=== PATIENT | female | born 1970 | race Caucasian/White ===

== ENCOUNTER 2021-01-13 15:55 | Emergency (ER) | payer BC, OTHER ==
[2021-01-13] MEDS ORDERED: KETOROLAC 15 MG/ML 1 ML VIAL IVP STA (16:47)
[2021-01-13] MEDS ORDERED: SODIUM CHLORIDE 0.9% 1,000 ML IV ONE (16:47)
[2021-01-13] MEDS ORDERED: ACETAMINOPHEN TAB 500 MG TAB PO STA (16:47)
[2021-01-13] MEDS ORDERED: ONDANSETRON 4 MG/2 ML VIAL IVP STA (16:47)
[2021-01-13] MEDS ORDERED: ALBUTEROL HFA INHALER INHALATION STA (16:47)
[2021-01-13] MEDS ORDERED: SODIUM CHLORIDE 0.9% 50 ML IVPB ONE (18:45)
[2021-01-13] MEDS ORDERED: CASIRIVIMAB (REGN10933) (EUA) 600 MG, IMDEVIMAB (REGN10987) (EUA) 600 MG in SODIUM CHLO... IVPB ONE (19:00)
[2021-01-13 19:09] VITALS: RESP 20
--- NOTE | 2021-01-13 19:12 | ED ---
General Adult HPI - General Chief complaint: Chest Pain Stated complaint: COVID + SOB Time Seen by Provider: 01/13/21 16:07 Source: family, RN notes reviewed, old records reviewed Mode of arrival: ambulatory Limitations: no limitations - History of Present Illness Initial comments: Patient is a 50-year-old female with past medical history remarkable for thyroid disorder and thyroid cancer currently on Synthroid presents in the department concern for acute COVID-19 infection. Patient states her symptoms have been present since January 06. She is tested on January 09 and was found be positive for COVID-19. States her symptoms have been getting worse. She remarks that she is having a nonproductive cough, dyspnea, fatigue, joint pain. She endorse mild nausea. She states she is febrile. She is not been taking anything for pain or fever since yesterday. Concerned regarding her COVID-19 symptoms. She states she was not vaccinated. She denies any chest pain. She denies any current abdominal pain. She denies any headache. She states her primary joint pain is in her lower back at this time. She otherwise has no acute complaints. Patient presents over concern for her COVID-19 symptoms. - Related Data Home Medications Medication Instructions Recorded Confirmed Levothyroxine Sodium 300 mcg PO DAILY 01/13/21 01/13/21 Multivit with Calcium,Iron,Min 1 tab PO DAILY 01/13/21 01/13/21 [Women's Multivitamin] Previous Rx's Medication Instructions Recorded Acetaminophen Tab [Tylenol] 500 mg PO Q6H PRN 14 Days #48 01/13/21 tablet Albuterol Inhaler [Ventolin Hfa 1 puff INHALATION RT-QID #8 gm 01/13/21 Inhaler] Allergies Allergy/AdvReac Type Severity Reaction Status Date / Time No Known Allergies Allergy Verified 01/13/21 16:44 Review of Systems ROS Statement: Those systems with pertinent positive or pertinent negative responses have been documented in the HPI. Review of Systems: CONST: Endorses fever EYES: Denies blurry vision ENT: Denies nasal congestion C/V: Denies Chest pain RESP: Endorses shortness of breath GI: Denies abdominal pain : Denies dysuria SKIN: Denies rash. MSK: Endorses joint pain NEURO: Denies headache ROS Other: All systems not noted in ROS Statement are negative. Past Medical History Past Medical History: Cancer, Thyroid Disorder Additional Past Medical History / Comment(s): HX OF THYROID CANCER, STATES SHE HAS APNEA AT TIMES., STATES POSITVE RECTAL BLOOD X1. History of Any Multi-Drug Resistant Organisms: None Reported Past Surgical History: Tonsillectomy, Tubal Ligation Additional Past Surgical History / Comment(s): SURGERY FOR SOMETHING THAT RUP TURED WHEN SHE WAS A CHILD, NOVASURE (2009), THYROIDECTOMY (2005). REPAIR OF VOCAL CORD (CUT DURING THYROID SURGERY) Past Anesthesia/Blood Transfusion Reactions: No Reported Reaction, Postoperative Nausea & Vomiting (PONV) Additional Past Anesthesia/Blood Transfusion Reaction / Comment(s): VOMITED X1. Past Psychological History: No Psychological Hx Reported Smoking Status: Never smoker Past Alcohol Use History: None Reported Past Drug Use History: None Reported - Past Family History Father Family Medical History: Cancer, COPD Additional Family Medical History / Comment(s): LUNG CANCER, DIVERTICULITIS. PTS UNCLE HAD COLON CANCER. General Exam - General Exam Comments Initial Comments: General: Appears in no acute distress. HEAD: Normal with no signs of head trauma. EYES: PERRLA, EOMI, conjunctiva normal, no discharge. ENT: Hearing grossly intact, normal oropharynx. RESPIRATORY: Clear breath sounds bilaterally. No wheezes, rales, or rhonchi. Patient is not tachypnea. Patient is not hypoxic. Oxygen saturations get to the lowest of 93% to 94% on room air. She does not require infection at this time. C/V: Patient is mildly tachycardic with regular rhythm. S1 and S2 auscultated. No peripheral edema. Peripheral pulses are 2+ intact throughout. ABD: Abd is soft, nontender, nondistended EXT: Normal range of motion, no obvious deformity. Patient does have lower paraspinal muscle tenderness to palpation which is been present since her current symptoms started. SKIN: No rashes or lesions observed on exposed skin. NEURO: Alert and oriented 4. Limitations: no limitations Course Vital Signs 01/13/21 01/13/21 01/13/21 15:57 16:00 18:00 Temperature 102.8 F H Pulse Rate 102 H 100 Respiratory 23 20 18 Rate Blood Pressure 121/90 O2 Sat by Pulse 94 L 95 Oximetry 01/13/21 01/13/21 19:08 21:33 Temperature 99.2 F 99.8 F H Pulse Rate 93 94 Respiratory 20 20 Rate Blood Pressure 129/82 130/77 O2 Sat by Pulse 95 98 Oximetry Medical Decision Making - Medical Decision Making Based on the patient's presentation and physical exam, patient seems to be experiencing slightly worsening symptoms over COVID-19 infection. She is Afebrile however is not requiring supplement oxygenation at this time. I did discuss with her that we will symptomatically treat her at this time, with IV Toradol, Zofran, 1 L fluid bolus, as well as an albuterol inhaler. She'll see with Tylenol for her fever. She was in agreement this plan. I did discuss with her starting monoclonal antibodies for the patient and she consented was in agreement with this plan. I do not believe that she requires any imaging or laboratory studies at this time. She was in agreement this plan. Following monoclonal antibody administration, she'll be observed for a period of one hour to observe for any signs of ALLERGIC reaction. Patient was monitored while she was in the department over the course Of her stay. Oxygen saturations improved. Patient's fever improved. Tachycardia resolved. On reevaluation, patient is feeling improved after monoclonal antibody treatment. I do believe it is safer to be discharged home at this time. I will provide the patient with a prescription for albuterol, Tylenol. I instructed the patient to follow up with their PCP in the next 3 days. . I explained that the patient should return to the emergency department if they experience any worsening symptoms. Strict return precautions were discussed with the patient. The patient expressed understanding of these instructions. I answered all questions that the patient had. The patient was discharged home in fair condition with their prescriptions and follow up information. - EKG Data -: EKG Interpreted by Me EKG Comments: 12-lead Electrocardiogram Interpretation Note EKG was reviewed and interpreted by myself. 12-lead ECG performed at 1622 is interpreted by me as revealing sinus tach cardiac at a rate of 109 beats per minute. [place] is normal. [place] interval is 132 ms, QRS duration is 90 form of seconds, QTC is 444 ms.. There were no ST or T wave abnormalities to suggest myocardial ischemia or injury. R wave progression across the precordium was satisfactory. By my interpretation this EKG is non-diagnostic for acute ischemia. Disposition Clinical Impression: COVID-19, Musculoskeletal pain Disposition: HOME SELF-CARE Condition: Fair Instructions (If sedation given, give patient instructions): Coronavirus Disease 2019 (COVID-19) Prescriptions: Acetaminophen Tab [Tylenol] 500 mg PO Q6H PRN 14 Days #48 tablet PRN Reason: Pain Albuterol Inhaler [Ventolin Hfa Inhaler] 1 puff INHALATION RT-QID #8 gm Is patient prescribed a controlled substance at d/c from ED?: No Referrals: Radha Baldwin MD [Primary Care Provider] - 1-2 days
[2021-01-13 21:34] VITALS: BP 130/77; PULSE 94; TEMP 99.8
== END 2021-01-13 21:33 | disposition home or self-care (01) ==
LOC: EC 15:55
DX: U07.1 COVID-19 (principal); M79.10 Myalgia, unspecified site; E07.9 Disorder of thyroid, unspecified; Z85.850 Personal history of malignant neoplasm of thyroid; Z90.89 Acquired absence of other organs; Z98.51 Tubal ligation status
CPT/HCPCS: 99285; 96365; 96375 ×2; 96361; 94640; 93005; J2405; J1885

== ENCOUNTER 2021-01-16 09:47 | Inpatient (IN) | payer BC ==
--- NOTE | 2021-01-16 10:01 | ED ---
General Adult HPI - General Stated complaint: COVID+, SOB Time Seen by Provider: 01/16/21 09:47 Source: patient, RN notes reviewed, old records reviewed - History of Present Illness Initial comments: This is a 50-year-old female presents emergency Department complaining of having shortness of breath. Patient states she started having symptoms shortest breath and cough on January 07 she was diagnosed on Tuesday with COVID and was given were general an and sent home on steroids. Patient states since then her difficulty breathing is worse. Patient denies any chest pain but she does complain of body aches and diarrhea. Patient denies any decreased taste or smell. Patient denies any lightheadedness or dizziness. Patient denies any abdominal pain patient denies any nausea vomiting. - Related Data Home Medications Medication Instructions Recorded Confirmed Levothyroxine Sodium 300 mcg PO DAILY 01/13/21 01/16/21 Multivit with Calcium,Iron,Min 1 tab PO DAILY 01/13/21 01/16/21 [Women's Multivitamin] Previous Rx's Medication Instructions Recorded Acetaminophen Tab [Tylenol] 500 mg PO Q6H PRN 14 Days #48 01/13/21 tablet Albuterol Inhaler [Ventolin Hfa 1 puff INHALATION RT-QID #8 gm 01/13/21 Inhaler] Allergies Allergy/AdvReac Type Severity Reaction Status Date / Time No Known Allergies Allergy Verified 01/16/21 11:10 Review of Systems ROS Statement: Those systems with pertinent positive or pertinent negative responses have been documented in the HPI. ROS Other: All systems not noted in ROS Statement are negative. Past Medical History Past Medical History: Cancer, Thyroid Disorder Additional Past Medical History / Comment(s): HX OF THYROID CANCER, STATES SHE HAS APNEA AT TIMES., STATES POSITVE RECTAL BLOOD X1. History of Any Multi-Drug Resistant Organisms: None Reported Past Surgical History: Tonsillectomy, Tubal Ligation Additional Past Surgical History / Comment(s): SURGERY FOR SOMETHING THAT RUPTURED WHEN SHE WAS A CHILD, NOVASURE (2009), THYROIDECTOMY (2004). REPAIR OF VOCAL CORD (CUT DURING THYROID SURGERY) Past Anesthesia/Blood Transfusion Reactions: No Reported Reaction, Postoperative Nausea & Vomiting (PONV) Additional Past Anesthesia/Blood Transfusion Reaction / Comment(s): VOMITED X1. Past Psychological History: No Psychological Hx Reported Smoking Status: Never smoker Past Alcohol Use History: None Reported Past Drug Use History: None Reported - Past Family History Father Family Medical History: Cancer, COPD Additional Family Medical History / Comment(s): LUNG CANCER, DIVERTICULITIS. PTS UNCLE HAD COLON CANCER. General Exam - General Exam Comments Initial Comments: GENERAL: Patient is well-developed and well-nourished. Patient is nontoxic and well- hydrated and is in mild distress. ENT: Neck is soft and supple. No significant lymphadenopathy is noted. Oropharynx is clear. Moist mucous membranes. Neck has full range of motion without elicit ing any pain. EYES: The sclera were anicteric and conjunctiva were pink and moist. Extraocular m ovements were intact and pupils were equal round and reactive to light. Eyelids were unremarkable. PULMONARY: Patient has crackles bilateral bases CARDIOVASCULAR: There is a regular rate and rhythm without any murmurs gallops or rubs. ABDOMEN: Soft and nontender with normal bowel sounds. SKIN: Skin is clear with no lesions or rashes and otherwise unremarkable. NEUROLOGIC: Patient is alert and oriented x3. Cranial nerves II through XII are grossly intact. Motor and sensory are also intact. Normal speech, volume and content. Symmetrical smile. MUSCULOSKELETAL: Normal extremities with adequate strength and full range of motion. LYMPHATICS: No significant lymphadenopathy is noted PSYCHIATRIC: Normal psychiatric evaluation. Course Vital Signs 01/16/21 01/16/21 09:57 10:15 Temperature 98.9 F Pulse Rate 99 Respiratory 25 H Rate Blood Pressure 118/88 O2 Sat by Pulse 87 L 93 L Oximetry Medical Decision Making - Medical Decision Making EKG shows normal sinus rhythm at 99 bpm PA interval 226 QRS is 88 QT interval 342 QTC is 438. Patient's EKG shows no ST segment elevation or depression. X-ray shows bilateral infiltrates consistent COVID Pneumonia. Patient's had a positive COVID more distal in the week. - Lab Data Result diagrams: 01/16/21 10:13 01/16/21 10:13 Lab Results 01/16/21 01/16/21 01/16/21 Range/Units 10:13 10:13 10:13 WBC 8.9 (3.8-10.6) k/uL RBC 4.28 (3.80-5.40) m/uL Hgb 13.2 (11.4-16.0) gm/dL Hct 38.9 (34.0-46.0) % MCV 91.0 (80.0-100.0) fL MCH 30.9 (25.0-35.0) pg MCHC 34.0 (31.0-37.0) g/dL RDW 15.1 (11.5-15.5) % Plt Count 213 (150-450) k/uL MPV 7.7 Neutrophils % 82 % Lymphocytes % 12 % Monocytes % 3 % Eosinophils % 0 % Basophils % 0 % Neutrophils # 7.3 (1.3-7.7) k/uL Lymphocytes # 1.1 (1.0-4.8) k/uL Monocytes # 0.3 (0-1.0) k/uL Eosinophils # 0.0 (0-0.7) k/uL Basophils # 0.0 (0-0.2) k/uL Hypochromasia Slight Poikilocytosis Slight D-Dimer 0.90 H (<0.60) mg/L FEU Sodium 142 (137-145) mmol/L Potassium 4.3 (3.5-5.1) mmol/L Chloride 106 (98-107) mmol/L Carbon Dioxide 28 (22-30) mmol/L Anion Gap 8 mmol/L BUN 18 H (7-17) mg/dL Creatinine 0.95 (0.52-1.04) mg/dL Est GFR (CKD-EPI)AfAm 82 (>60 ml/min/1.73 sqM) Est GFR (CKD-EPI)NonAf 72 (>60 ml/min/1.73 sqM) Glucose 136 H (74-99) mg/dL Calcium 8.3 L (8.4-10.2) mg/dL Total Bilirubin 0.7 (0.2-1.3) mg/dL AST 62 H (14-36) U/L ALT 36 H (4-34) U/L Alkaline Phosphatase 84 (38-126) U/L Total Protein 6.9 (6.3-8.2) g/dL Albumin 3.8 (3.5-5.0) g/dL Disposition Clinical Impression: Pneumonia due to COVID-19 virus, Hypoxia Disposition: ADMITTED IP TO THIS HOSP Referrals: Radha Baldwin MD [Primary Care Provider] - 1-2 days Time of Disposition: 11:27
[2021-01-16 10:22] LABS: Basophils % (A) 0 %; Eosinophils % (A) 0 %; HCT 38.9 % (34.0-46.0); HGB 13.2 gm/dL (11.4-16.0); Hypochromasia Slight; Lymphocytes # (A) 1.1 k/uL (1.0-4.8); Lymphocytes % (A) 12 %; MCH 30.9 pg (25.0-35.0); Mean Platelet Volume 7.7; Monocytes # (A) 0.3 k/uL (0-1.0); Monocytes % (A) 3 %; Neutrophils # (A) 7.3 k/uL (1.3-7.7); Neutrophils % (A) 82 %; Platelet Count 213 k/uL (150-450); Poikilocytosis Slight; RBC 4.28 m/uL (3.80-5.40); RDW 15.1 % (11.5-15.5); WBC 8.9 k/uL (3.8-10.6)
--- NOTE | 2021-01-16 10:34 | XR ---
EXAMINATION TYPE: XR chest 1V portable DATE OF EXAM: 01/16/2021 COMPARISON: NONE HISTORY: Shortness of breath and cough TECHNIQUE: Single frontal view of the chest is obtained. FINDINGS: Bilateral airspace disease is present. There is no evident pneumothorax or pleural effusio n. Cardiac mediastinal silhouette is within normal limits. Bones are within normal limits. IMPRESSION: Correlate for bilateral pneumonia
[2021-01-16 10:41] LABS: Albumin 3.8 g/dL (3.5-5.0); Calcium 8.3 mg/dL (8.4-10.2); Potassium 4.3 mmol/L (3.5-5.1); Total Bilirubin 0.7 mg/dL (0.2-1.3); Total Protein 6.9 g/dL (6.3-8.2)
[2021-01-16] MEDS ORDERED: DEXAMETHASONE SOD PHOSPHATE 10 MG/ML 1 ML VIAL IV STA (11:07)
[2021-01-16] MEDS ORDERED: SODIUM CHLORIDE 0.9% 1,000 ML IV ONE (11:27)
--- NOTE | 2021-01-16 13:26 | P.CNPUL ---
History of Present Illness Consult date: 01/16/21 Requesting physician: Leonel Freed Reason for consult: dyspnea, hypoxemia, abnormal CXR/CT Chief complaint: Shortness of breath, cough, dizziness, diarrhea History of present illness: This is a 50-year-old female patient who follows with Dr. Baldwin as her primary care provider. She has a history of thyroidectomy with subsequent hypothyroidism, obesity. On 01/07/2021 she started having symptoms of shortness of breath, cough, dizziness, diarrhea. She tested positive for COVID-19 on 01/12/2021. She came to the emergency room on 831 and did receive monoclonal antibodies and discharged home. She represented here this morning with worsening shortness of breath cough and congestion. O2 saturation room air 87%. She is afebrile. Tachypneic. Blood pressure stable. Chest x-ray does reveal bilateral airspace disease consistent with COVID-19 pneumonia. White count 8.9. Hemoglobin 13.2. D-dimer 0.90. Lymphocytes 1.1. Sodium 142. Potassium 4.3. Creatinine 0.95. Glucose 136. AST 62. ALT 36. She did receive Decadron 10 mg IV 1. 0.9 normal saline at 75 ML's per hour. Review of Systems REVIEW OF SYSTEMS: CONSTITUTIONAL: Generalized weakness, fatigue, poor appetite. Denies any recent significant weight loss or weight gain. EYES: Denies change in vision. EARS, NOSE, MOUTH, THROAT: Denies headaches, denies sore throat. CARDIOVASCULAR: Denies chest pain, palpitations or syncopal episodes. RESPIRATORY: Positive for shortness of breath, cough, congestion no hemoptysis. GASTROINTESTINAL: Positive for poor appetite, diarrhea GENITOURINARY: Denies hematuria, denies infections. MUSKULOSKELETAL: Denies pain, denies swelling. INTEGUMENTARY: Denies rash, denies eczema. NEUROLOGICAL: Denies recent memory loss, no recent seizure activity. PSYCHIATRIC: Denies anxiety, denies depression. HEMATOLOGIC/LYMPHATIC: Denies anemia, denies enlarged lymph nodes. Past Medical History Past Medical History: Cancer, Thyroid Disorder Additional Past Medical History / Comment(s): HX OF THYROID CANCER, STATES SHE HAS APNEA AT TIMES., STATES POSITVE RECTAL BLOOD X1. History of Any Multi-Drug Resistant Organisms: None Reported Past Surgical History: Tonsillectomy, Tubal Ligation Additional Past Surgical History / Comment(s): SURGERY FOR SOMETHING THAT RUPTURED WHEN SHE WAS A CHILD, NOVASURE (2010), THYROIDECTOMY (2005). REPAIR OF VOCAL CORD (CUT DURING THYROID SURGERY) Past Anesthesia/Blood Transfusion Reactions: No Reported Reaction, Postoperative Nausea & Vomiting (PONV) Additional Past Anesthesia/Blood Transfusion Reaction / Comment(s): VOMITED X1. Past Psychological History: No Psychological Hx Reported Smoking Status: Never smoker Past Alcohol Use History: None Reported Past Drug Use History: None Reported - Past Family History Father Family Medical History: Cancer, COPD Additional Family Medical History / Comment(s): LUNG CANCER, DIVERTICULITIS. PTS UNCLE HAD COLON CANCER. Medications and Allergies Home Medications Medication Instructions Recorded Confirmed Type Acetaminophen Tab [Tylenol] 500 mg PO Q6H PRN 14 Days #48 01/13/21 01/16/21 Rx tablet Albuterol Inhaler [Ventolin Hfa 1 puff INHALATION RT-QID #8 gm 01/13/21 01/16/21 Rx Inhaler] Levothyroxine Sodium 300 mcg PO DAILY 01/13/21 01/16/21 History Multivit with Calcium,Iron,Min 1 tab PO DAILY 01/13/21 01/16/21 History [Women's Multivitamin] Allergies Allergy/AdvReac Type Severity Reaction Status Date / Time No Known Allergies Allergy Verified 01/16/21 11:10 Physical Exam Vitals: Vital Signs Temp Pulse Resp BP Pulse Ox 01/16/21 11:17 95 20 138/89 97 01/16/21 10:15 93 L 01/16/21 09:57 98.9 F 99 25 H 118/88 87 L Intake and Output 01/15/21 01/16/21 01/16/21 22:59 06:59 14:59 Other: Weight 110.223 kg GENERAL EXAM: Alert, 50-year-old female patient, on 2 L nasal cannula with O2 saturation 97%, fairly comfortable in no apparent distress. HEAD: Normocephalic. EYES: Normal reaction of pupils, equal size. NOSE: Clear with pink turbinates. THROAT: No erythema or exudates. NECK: No masses, no JVD. CHEST: No chest wall deformity. LUNGS: Equal air entry with crackles in the bilateral bases CVS: S1 and S2 normal with no audible murmur, regular rhythm. ABDOMEN: No hepatosplenomegaly, normal bowel sounds, no guarding or rigidity. SPINE: No scoliosis or deformity SKIN: No rashes CENTRAL NERVOUS SYSTEM: No focal deficits, tone is normal in all 4 extremities. EXTREMITIES: There is no peripheral edema. No clubbing, no cyanosis. Peripheral pulses are intact. Results - Laboratory Findings CBC and BMP: 01/16/21 10:13 01/16/21 10:13 PT/INR, D-dimer D-Dimer 0.90 mg/L FEU (<0.60) H 01/16/21 10:13 Abnormal lab findings: Abnormal Labs 01/16/21 01/16/21 10:13 10:13 D-Dimer 0.90 H BUN 18 H Glucose 136 H Calcium 8.3 L AST 62 H ALT 36 H - Diagnostic Findings Chest x-ray: image reviewed Assessment and Plan Assessment: 1 Acute hypoxemic respiratory failure secondary to acute COVID-19 pneumonia, outside the window for Remdesivir 2 Mild transaminitis secondary to above 3 Hypothyroidism secondary to thyroidectomy 4 Obesity Plan: The patient was seen and evaluated by Dr. Moreland We'll continue with Decadron 6 mg IV daily Add Lovenox 40 mg subcu daily Add vitamin C, vitamin D3, zinc Outside the window for Remdesivir Repeat chest x-ray, inflammatory markers in a.m. We will continue to follow and make further recommendations based on his clinical status I, the cosigning physician, performed a history & physical examination of the patient. Lungs sounds with crackles in the bilateral bases. Maintaining good O2 saturations in the 90s on 2 L/m per nasal cannula I discussed the assessment and plan of care with my nurse practitioner, Licha Costa. I attest to the above consultation as dictated by her. Time with Patient: Greater than 30
[2021-01-16] MEDS ORDERED: ALBUTEROL NEBULIZED 2.5 MG/3 ML INHALATION PRN (13:34)
[2021-01-16] MEDS: ENOXAPARIN 40 MG/0.4 ML SYRINGE SQ SCH (15:58)
[2021-01-16] MEDS: CHOLECALCIFEROL 25 MCG (1000 IU) TABLET PO SCH (15:59)
[2021-01-16] MEDS: ZINC SULFATE 220 MG CAP PO SCH (15:59)
[2021-01-16] MEDS: ASCORBIC ACID 500 MG TAB PO SCH (15:59)
[2021-01-16] MEDS ORDERED: LOPERAMIDE 2 MG CAP PO PRN (18:09)
--- NOTE | 2021-01-16 18:11 | P.HPIM ---
History of Present Illness H&P Date: 01/16/21 Chief Complaint: Short of breath History of presenting complaint: This is a 50-year-old patient, follows Dr. Alanna Baldwin. Has a history of thyroid cancer with thyroidectomy. On supplemental Synthroid. On January 07 patient started having respiratory symptoms in terms of coughing short of breath. Symptoms progress. 5 days ago on Tuesday patient tested positive for COVID 19. She went and saw family doctor. Was given steroids and sent home. Symptoms are worsened. Patient more short of breath. Headache. Fevers chills. Diarrhea. Decreased appetite dizziness and rundown. No loss of smell or taste currently. Pulse ox was 87% on room air Patient had elected not to take the vaccination for COVID 19 Review of systems: GEN.: Weak diet decrease appetite fever EYES: None HEENT: None NECK: None RESPIRATORY: As above CARDIOVASCULAR: None GASTROINTESTINAL: Diarrhea GENITOURINARY: None MUSCULOSKELETAL: Some muscle aches LYMPHATICS: None HEMATOLOGICAL: None PSYCHIATRY: None NEUROLOGICAL: None Past medical history to include: Thyroid cancer with thyroidectomy on supplemental Synthroid Social history: . Works of [employer]. No smoking or alcohol or recreational drugs. Family history: COPD, lung cancer, diverticulitis, colon cancer Physical examination: VITAL SIGNS: Fever at home, 99, 25, 118/88, 87% on room air, upon presentation GENERAL: BMI 43, laying in bed, tired. EYES: Pupils equal. Conjunctiva normal. HEENT: External appearance of nose and ears normal, oral cavity grossly normal. NECK: JVD not raised; masses not palpable. HEART: First and second heart sounds are normal; no edema. LUNGS: Respiratory rate increased; decreased breath sounds. ABDOMEN: Soft, nontender, liver spleen not palpable, no masses palpable. PSYCH: Alert and oriented x3; mood and affect normal. NEUROLOGICAL: Cranial nerves grossly intact; no facial asymmetry, power and sensation grossly intact. LYMPHATICS: No lymph nodes palpable in the axilla and neck INVESTIGATIONS, reviewed in the clinical context: White count 8.9 hemoglobin 13.2 platelets 213 D-dimer 0.9 Potassium 4.3 BUN 18 creatinine 0.95 Total bilirubin 0.7 AST 62 ALT 36 EKG tracing personally reviewed by me-normal sinus rhythm, rate 99 Chest x-ray film personally reviewed by me-bilateral infiltrates Assessment and plan: -Acute severe COVID 19 pneumonitis, and a nonvaccinated patient with symptoms starting about 9 days ago Patient started on IV Decadron. Zinc, vitamin C, vitamin D. Consultation made to pulmonary and ID. Patient will benefit from IV Remdesivir. Patient may benefit from therapeutic dose of Lovenox, would let pulmonary determine the same -Acute hypoxic respiratory failure from COVID-19 pneumonia On nasal cannula 2 L. Incentive spirometry -Morbid obesity, BMI 43 Weight loss measures. See dietitian -Hypothyroid in a patient with total thyroidectomy for thyroid cancer Resume Synthroid -Acute diarrhea from COVID-19 IV fluids. Symptomatic treatment * Started on IV Decadron. IV Remdesivir and IL-6 inhibitor as per pulmonary/ID. Supplemented sitting vitamin C vitamin D. Incentive spirometry. Supplement oxygen. Lovenox dosing as per pulmonary. Given the complexity and severity of patient's condition expect the patient to be in the hospital at least for 2 overnights Care was discussed with the patient. Questions answered. Past Medical History Past Medical History: Cancer, Thyroid Disorder Additional Past Medical History / Comment(s): HX OF THYROID CANCER, STATES SHE HAS APNEA AT TIMES. History of Any Multi-Drug Resistant Organisms: None Reported Past Surgical History: Tonsillectomy, Tubal Ligation Additional Past Surgical History / Comment(s): SURGERY FOR SOMETHING THAT RUPTUR ED WHEN SHE WAS A CHILD, NOVASURE (2009), THYROIDECTOMY (2004). REPAIR OF VOCAL CORD (CUT DURING THYROID SURGERY), scar tissue removal from abdomen Past Anesthesia/Blood Transfusion Reactions: Postoperative Nausea & Vomiting (PONV) Additional Past Anesthesia/Blood Transfusion Reaction / Comment(s): VOMITED X1. Smoking Status: Never smoker - Past Family History Father Family Medical History: Cancer, COPD Additional Family Medical History / Comment(s): LUNG CANCER, DIVERTICULITIS. PTS UNCLE HAD COLON CANCER. Medications and Allergies Home Medications Medication Instructions Recorded Confirmed Type Acetaminophen Tab [Tylenol] 500 mg PO Q6H PRN 14 Days #48 01/13/21 01/16/21 Rx tablet Albuterol Inhaler [Ventolin Hfa 1 puff INHALATION RT-QID #8 gm 01/13/21 01/16/21 Rx Inhaler] Levothyroxine Sodium 300 mcg PO DAILY 01/13/21 01/16/21 History Multivit with Calcium,Iron,Min 1 tab PO DAILY 01/13/21 01/16/21 History [Women's Multivitamin] Allergies Allergy/AdvReac Type Severity Reaction Status Date / Time No Known Allergies Allergy Verified 01/16/21 11:10 Physical Exam Vitals: Vital Signs Temp Pulse Pulse Resp BP BP Pulse Ox 01/16/21 16:30 98.7 F 82 18 109/73 94 L 01/16/21 14:55 98.6 F 88 20 107/51 95 01/16/21 13:15 98.4 F 85 20 112/80 95 01/16/21 11:17 95 20 138/89 97 01/16/21 10:15 93 L 01/16/21 09:57 98.9 F 99 25 H 118/88 87 L Intake and Output 01/16/21 01/16/21 01/16/21 06:59 14:59 22:59 Other: Weight 110.223 kg 110.223 kg Results CBC & Chem 7: 01/16/21 10:13 01/16/21 10:13 Labs: Abnormal Lab Results - Last 24 Hours (Table) 01/16/21 01/16/21 Range/Units 10:13 10:13 D-Dimer 0.90 H (<0.60) mg/L FEU BUN 18 H (7-17) mg/dL Glucose 136 H (74-99) mg/dL Calcium 8.3 L (8.4-10.2) mg/dL AST 62 H (14-36) U/L ALT 36 H (4-34) U/L Thrombosis Risk Factor Assmnt - Choose All That Apply Any of the Below Risk Factors Present?: Yes Each Factor Represents 1 point: Age 41-60 years Other Risk Factors: No Other congenital or acquired thrombophilia - If yes, enter type in comment: No Thrombosis Risk Factor Assessment Total Risk Factor Score: 1 Thrombosis Risk Factor Assessment Level: Low Risk
[2021-01-16] MEDS: ALBUTEROL HFA INHALER INHALATION PRN (20:35)
--- NOTE | 2021-01-16 22:22 | P.CONS ---
History of Present Illness - Reason for Consult Consult date: 01/16/21 COVID 19 pneumonia Requesting physician: Leonel Freed - Chief Complaint cough and shortness of breath x days - History of Present Illness History of present illness : Patient is 50-year-old female started getting sick on 01/07/2021 symptom has been mostly dry hacking cough weakness and diarrhea patient was evaluated on 01/13/2021 at [facility] ER the patient was diagnosed with a COVID-19 infection patient did receive monoclonal antibody infusion and was subsequent discharged home however the patient mentioned she did not have improvement in her symptoms, the patient primary care physician nurse did check on the patient today and after our telephone conversation advised the patient to go back to the ER patient be complaining of shortness of breath on minimal exertion she also have a cough which is moderate intensity not be repeated sputum patient did have some nausea but no vomiting and did have decreased oral intake and diarrhea with multiple loose stools no blood or mucus in the stool no abdominal pain patient was reevaluated by the ER physician on arrival to the ER the patient was afebrile patient was noted to be hypoxic with O2 sats of 87% on room air patient did have a normal white count with no lymphopenia D-dimer was 0.90 creatinine was 0.958 liver enzymes are mildly elevated inflammatory markers were not checked patient did have a chest x-ray correlate for bilateral pneumonia patient has been admitted to hospital patient was started on dexamethasone Lovenox zinc ascorbic acid infectious disease was consulted for further management Review of system: CONSTITUTIONAL: Positive for weakness along with the fever. EYES: No complaint. ENT: No complaint. RESPIRATORY: As per history of present illness CARDIOVASCULAR: No complaint. GENITOURINARY: No complaint. GASTROINTESTINAL: As per history of present illness. MUSCULOSKELETAL: No complaint. INTEGUMENTARY: No complaint. PSYCHOLOGIC: No complaint. ENDOCRINE: No complaint. NEUROLOGIC: No complaint. Past medical history : Reviewed, documented below Past surgical history : Reviewed, documented below Social history: Reviewed, documented below Medications: Reviewed, as documented below GENERAL DESCRIPTION: Middle-aged female lying in bed, no distress. No tachypnea or accessory muscle of respiration use. HEENT: Shows Pallor , no scleral icterus. Oral mucous membrane is dry. NECK: Trachea central, no thyromegaly. LUNGS: Unlabored breathing. Coarse breath sounds bilaterally. No wheeze or crackle. HEART: S1, S2, regular rate and rhythm. ABDOMEN: Soft, no tenderness , guarding or rigidity EXTREMITIES: No edema of feet. SKIN: No rash, no masses palpable. NEUROLOGICAL: The patient is awake, alert, oriented x3, mood and affect normal. LABS AND RADIOLOGY: Reviewed results see below Assessment : Patient presented to hospital with increasing shortness of breath cough which is moderate intensity in this patient who did have hypoxemia and evidence of multifocal pneumonia secondary to COVID-19 infection in this patient did not responded to the monoclonal antibody infusion, patient is currently out of the therapeutic window for remdesivir per her [facility] policy as the patient symptom has been going on for 9 days now treatment will be mostly supportive no evidence of any secondary bacterial pneumonia so no need for antibiotics Plan: 1-dexamethasone Lovenox and ascorbic acid 2-gentle IV fluid 3-check inflammatory markers 4-droplet isolation and respiratory support We will follow on clinical condition and cultures to further adjust medication if needed Thank you for this consultation we will follow the patient along with you Past Medical History Past Medical History: Cancer, Thyroid Disorder Additional Past Medical History / Comment(s): HX OF THYROID CANCER, STATES SHE HAS APNEA AT TIMES., STATES POSITVE RECTAL BLOOD X1. History of Any Multi-Drug Resistant Organisms: None Reported Past Surgical History: Tonsillectomy, Tubal Ligation Additional Past Surgical History / Comment(s): SURGERY FOR SOMETHING THAT RUPTURED WHEN SHE WAS A CHILD, NOVASURE (2009), THYROIDECTOMY (2005). REPAIR OF VOCAL CORD (CUT DURING THYROID SURGERY) Past Anesthesia/Blood Transfusion Reactions: No Reported Reaction, Postoperative Nausea & Vomiting (PONV) Additional Past Anesthesia/Blood Transfusion Reaction / Comm: VOMITED X1. Past Psychological History: No Psychological Hx Reported Smoking Status: Never smoker Past Alcohol Use History: None Reported Past Drug Use History: None Reported - Past Family History Father Family Medical History: Cancer, COPD Additional Family Medical History / Comment(s): LUNG CANCER, DIVERTICULITIS. PTS UNCLE HAD COLON CANCER. Medications and Allergies Home Medications Medication Instructions Recorded Confirmed Type Acetaminophen Tab [Tylenol] 500 mg PO Q6H PRN 14 Days #48 01/13/21 01/16/21 Rx tablet Albuterol Inhaler [Ventolin Hfa 1 puff INHALATION RT-QID #8 gm 01/13/21 01/16/21 Rx Inhaler] Levothyroxine Sodium 300 mcg PO DAILY 01/13/21 01/16/21 History Multivit with Calcium,Iron,Min 1 tab PO DAILY 01/13/21 01/16/21 History [Women's Multivitamin] Allergies Allergy/AdvReac Type Severity Reaction Status Date / Time No Known Allergies Allergy Verified 01/16/21 11:10 Physical Exam Vitals: Vital Signs Temp Pulse Resp BP Pulse Ox 01/16/21 14:55 98.6 F 88 20 107/51 95 01/16/21 13:15 98.4 F 85 20 112/80 95 01/16/21 11:17 95 20 138/89 97 01/16/21 10:15 93 L 01/16/21 09:57 98.9 F 99 25 H 118/88 87 L Intake and Output 01/16/21 01/16/21 01/16/21 06:59 14:59 22:59 Other: Weight 110.223 kg Results CBC & Chem 7: 01/16/21 10:13 01/16/21 10:13 Labs: Abnormal Lab Results - Last 24 Hours (Table) 01/16/21 01/16/21 Range/Units 10:13 10:13 D-Dimer 0.90 H (<0.60) mg/L FEU BUN 18 H (7-17) mg/dL Glucose 136 H (74-99) mg/dL Calcium 8.3 L (8.4-10.2) mg/dL AST 62 H (14-36) U/L ALT 36 H (4-34) U/L
[2021-01-17] MEDS: LEVOTHYROXINE 100 MCG TAB PO SCH (05:36)
--- NOTE | 2021-01-17 07:47 | XR ---
EXAMINATION TYPE: XR chest 1V portable DATE OF EXAM: 01/17/2021 COMPARISON: 01/16/2021 HISTORY: 50 years Female. STUDY INDICATION GIVEN: Covid pneumonia . TECHNIQUE: Portable upright chest radiograph FINDINGS AND IMPRESSION: Interval mild decrease in patchy bilateral right greater than left opacities which likely represent m ultifocal pneumonia and/or bibasilar subsegmental atelectatic changes. No pneumothorax, pleural effusion or cardiomegaly. Stable osseous structures.
[2021-01-17] MEDS: MULTIVITAMINS, THERA 1 EACH TAB PO SCH (09:06)
[2021-01-17] MEDS: CHOLECALCIFEROL 25 MCG (1000 IU) TABLET PO SCH (09:06)
[2021-01-17] MEDS: ENOXAPARIN 40 MG/0.4 ML SYRINGE SQ SCH (09:06)
[2021-01-17] MEDS: ZINC SULFATE 220 MG CAP PO SCH (09:06)
[2021-01-17] MEDS: DEXAMETHASONE SOD PHOSPHATE 10 MG/ML 1 ML VIAL IV SCH (09:06)
[2021-01-17] MEDS: ASCORBIC ACID 500 MG TAB PO SCH (09:06)
[2021-01-17] MEDS: ALBUTEROL HFA INHALER INHALATION PRN ×4 (09:28→21:11)
--- NOTE | 2021-01-17 13:28 | P.PN ---
Subjective Progress Note Date: 01/17/21 Principal diagnosis: COVID-19 pneumonia This is a 50-year-old female patient who follows with Dr. Baldwin as her primary care provider. She has a history of thyroidectomy with subsequent hypothyroidism, obesity. On 01/07/2021 she started having symptoms of shortness of breath, cough, dizziness, diarrhea. She tested positive for COVID-19 on 01/12/2021. She came to the emergency room on 831 and did receive monoclonal antibodies and discharged home. She represented here this morning with worsening shortness of breath cough and congestion. O2 saturation room air 87%. She is afebrile. Tachypneic. Blood pressure stable. Chest x-ray does reveal bilateral airspace disease consistent with COVID-19 pneumonia. White count 8.9. Hemoglobin 13.2. D-dimer 0.90. Lymphocytes 1.1. Sodium 142. Potassium 4.3. Creatinine 0.95. Glucose 136. AST 62. ALT 36. She did receive Decadron 10 mg IV 1. 0.9 normal saline at 75 ML's per hour. The patient is seen today 01/17/2001 in follow-up on the regular medical floor. She is currently resting fairly comfortably in bed. Awake and alert in no acute distress. Breathing a bit easier today compared to yesterday. She is ma intaining O2 saturations in the 90s on 2 L/m per nasal cannula. She's afebrile. Hemodynamically stable. D-dimer 0.98. She remains on Lovenox, Decadron, vitamin supplements. Objective - Vital Signs Vital signs: Vital Signs Temp 98.1 F 01/17/21 10:04 Pulse 82 01/17/21 10:04 Resp 18 01/17/21 10:04 BP 103/68 01/17/21 10:04 Pulse Ox 92 L 01/17/21 10:04 Intake & Output 01/16/21 01/17/21 01/17/21 18:59 06:59 18:59 Intake Total 1240 Balance 1240 Weight 110.223 kg Intake: Intake, IV Titration 600 Amount Sodium Chloride 0.9% 1, 600 000 ml @ 75 mls/hr IV . [id number] Rx#:[id number] Oral 640 Other: # Voids 1 1 # Bowel Movements 2 - Exam GENERAL EXAM: Alert, 50-year-old female patient, on 2 L nasal cannula with O2 saturation 92%, fairly comfortable in no apparent distress. HEAD: Normocephalic. EYES: Normal reaction of pupils, equal size. NOSE: Clear with pink turbinates. THROAT: No erythema or exudates. NECK: No masses, no JVD. CHEST: No chest wall deformity. LUNGS: Equal air entry with crackles in the bilateral bases CVS: S1 and S2 normal with no audible murmur, regular rhythm. ABDOMEN: No hepatosplenomegaly, normal bowel sounds, no guarding or rigidity. SPINE: No scoliosis or deformity SKIN: No rashes CENTRAL NERVOUS SYSTEM: No focal deficits, tone is normal in all 4 extremities. EXTREMITIES: There is no peripheral edema. No clubbing, no cyanosis. Peripheral pulses are intact. - Labs CBC & Chem 7: 01/16/21 10:13 01/16/21 10:13 Labs: Abnormal Lab Results - Last 24 Hours (Table) 01/17/21 Range/Units 05:49 D-Dimer 0.98 H (<0.60) mg/L FEU Assessment and Plan Assessment: 1 Acute hypoxemic respiratory failure secondary to acute COVID-19 pneumonia, outside the window for Remdesivir 2 Mild transaminitis secondary to above 3 Hypothyroidism secondary to thyroidectomy 4 Obesity Plan: The patient was seen and evaluated by Dr. Moreland Continue with Decadron, Lovenox, vitamin supplements Titrate the FiO2 as tolerated Repeat chest x-ray, inflammatory markers in a.m. We will continue to follow I, the cosigning physician, performed a history & physical examination of the patient. Lungs sounds with crackles in the bilateral bases. Maintaining good O2 saturations in the 90s on 2 L/m per nasal cannula I discussed the assessment and plan of care with my nurse practitioner, Licha Costa. I attest to the above note as dictated by her.
[2021-01-17 13:54] LABS: C Reactive Protein 13.3 mg/dL (0.0-0.8)
[2021-01-17 14:40] VITALS: BMI 43.0
--- NOTE | 2021-01-17 18:53 | P.PN ---
Subjective Progress Note Date: 01/17/21 Principal diagnosis: COVID-19 pneumonia 50-year-old female patient who follows with Dr. Baldwin as her primary care provider. She has a history of thyroidectomy with subsequent hypothyroidism, obesity. On 01/07/2021 she started having symptoms of shortness of breath, cough, dizziness, diarrhea. She tested positive for COVID-19 on 01/12/2021. She came to the emergency room on 831 and did receive monoclonal antibodies and discharged home. She represented here this morning with worsening shortness of breath cough and congestion. O2 saturation room air 87%. She is afebrile. Tachypneic. Blood pressure stable. Chest x-ray does reveal bilateral airspace disease consistent with COVID-19 pneumonia. White count 8.9. Hemoglobin 13.2. D-dimer 0.90. Lymphocytes 1.1. Sodium 142. Potassium 4.3. Creatinine 0.95. Glucose 136. AST 62. ALT 36. She did receive Decadron 10 mg IV 1. 0.9 normal saline at 75 ML's per hour. Objective - Vital Signs Vital signs: Vital Signs Temp 98.1 F 01/17/21 10:04 Pulse 82 01/17/21 10:04 Resp 18 01/17/21 10:04 BP 103/68 01/17/21 10:04 Pulse Ox 92 L 01/17/21 10:04 Intake & Output 01/16/21 01/17/21 01/17/21 18:59 06:59 18:59 Intake Total 1240 Balance 1240 Weight 110.223 kg Intake: Intake, IV Titration 600 Amount Sodium Chloride 0.9% 1, 600 000 ml @ 75 mls/hr IV . [id number] ONE Rx#:[id number] Oral 640 Other: # Voids 1 1 # Bowel Movements 2 - Exam GENERAL EXAM: Alert, 50-year-old female patient, on 2 L nasal cannula with O2 saturation 92%, fairly comfortable in no apparent distress. HEAD: Normocephalic. NECK: No masses, no JVD. CHEST: No chest wall deformity. LUNGS: Equal air entry with crackles in the bilateral bases CVS: S1 and S2 normal with no audible murmur, regular rhythm. ABDOMEN: No hepatosplenomegaly, normal bowel sounds, no guarding or rigidity. CENTRAL NERVOUS SYSTEM: No focal deficits, tone is normal in all 4 extremities. EXTREMITIES: There is no peripheral edema. No clubbing, no cyanosis. Peripheral pulses are intact. - Labs CBC & Chem 7: 01/16/21 10:13 01/16/21 10:13 Labs: Abnormal Lab Results - Last 24 Hours (Table) 01/17/21 Range/Units 05:49 D-Dimer 0.98 H (<0.60) mg/L FEU Assessment and Plan Assessment: 1. Acute hypoxemic respiratory failure --Continue with supplemental oxygen with plan is to continue to titrate FiO2 as tolerated 2. Acute over 19 pneumonia -- Patient was outside the window for Remdesivir - We will continue to monitor and trend inflammatory markers and chest x-ray periodically - Patient remains on Decadron, Lovenox and vitamin supplements 3. Mild transaminitis; possibly related to COVID-19 infection; we will monitor liver enzymes 4. Hypothyroidism; continue with home dose of levothyroxine 5. Obesity; counseling done DVT prophylaxis; SCDs/subcu Lovenox CODE STATUS; full code
--- NOTE | 2021-01-17 19:10 | PN ---
PROGRESS NOTE DATE OF SERVICE: 01/17/2021 REASON FOR FOLLOWUP: COVID-19 pneumonia. INTERVAL HISTORY: The patient is afebrile. The patient is breathing comfortably. The patient denies having any chest pain or shortness of breath. Cough has slightly decreased in intensity. No vomiting. No abdominal pain or diarrhea. PHYSICAL EXAMINATION: Blood pressure 130/82 with a pulse of 83, temperature 97.9. She is 94% on 2 L nasal cannula. General description is a middle-aged female up in the bed in no distress. Respiratory system: Unlabored breathing, decreased intensity of breath sounds. No wheeze. Heart S1, S2. Regular rate and rhythm. Abdomen soft, no tenderness. LABS: Chest x-ray showing interval mild decrease in the patchy bilateral infiltrate. ( ) is 0.98. LDH is 526. ( ) is 13. DIAGNOSTIC IMPRESSION AND PLAN: Patient with acute COVID-19 pneumonia and this patient has shown clinical improvement, to continue with Lovenox, dexamethasone, ascorbic acid and supportive care. Prognosis remains to be guarded. MMODL / IJN: [id number] /
[2021-01-18] MEDS: LEVOTHYROXINE 100 MCG TAB PO SCH (05:21)
[2021-01-18] MEDS: ALBUTEROL HFA INHALER INHALATION PRN ×3 (08:20→17:17)
[2021-01-18] MEDS: ASCORBIC ACID 500 MG TAB PO SCH (08:26)
[2021-01-18] MEDS: DEXAMETHASONE SOD PHOSPHATE 10 MG/ML 1 ML VIAL IV SCH (08:26)
[2021-01-18] MEDS: MULTIVITAMINS, THERA 1 EACH TAB PO SCH (08:26)
[2021-01-18] MEDS: ZINC SULFATE 220 MG CAP PO SCH (08:26)
[2021-01-18] MEDS: ENOXAPARIN 40 MG/0.4 ML SYRINGE SQ SCH (08:26)
[2021-01-18] MEDS: CHOLECALCIFEROL 25 MCG (1000 IU) TABLET PO SCH (08:26)
--- NOTE | 2021-01-18 12:28 | P.PN ---
Subjective Progress Note Date: 01/18/21 Principal diagnosis: COVID-19 pneumonia This is a 50-year-old female patient who follows with Dr. Baldwin as her primary care provider. She has a history of thyroidectomy with subsequent hypothyroidism, obesity. On 01/07/2021 she started having symptoms of shortness of breath, cough, dizziness, diarrhea. She tested positive for COVID-19 on 01/12/2021. She came to the emergency room on 831 and did receive monoclonal antibodies and discharged home. She represented here this morning with worsening shortness of breath cough and congestion. O2 saturation room air 87%. She is afebrile. Tachypneic. Blood pressure stable. Chest x-ray does reveal bilateral airspace disease consistent with COVID-19 pneumonia. White count 8.9. Hemoglobin 13.2. D-dimer 0.90. Lymphocytes 1.1. Sodium 142. Potassium 4.3. Creatinine 0.95. Glucose 136. AST 62. ALT 36. She did receive Decadron 10 mg IV 1. 0.9 normal saline at 75 ML's per hour. The patient is seen today 01/17/2001 in follow-up on the regular medical floor. She is currently resting fairly comfortably in bed. Awake and alert in no acute distress. Breathing a bit easier today compared to yesterday. She is ma intaining O2 saturations in the 90s on 2 L/m per nasal cannula. She's afebrile. Hemodynamically stable. D-dimer 0.98. She remains on Lovenox, Decadron, vitamin supplements. The patient is seen today 01/18/2021 in follow-up on the regular medical floor. Awake and alert in no acute distress. Feeling nearly back to her baseline. She is maintaining O2 saturations in the 90s on 2 L nasal cannula. She does desaturate to 86% on room air. Afebrile. Hemodynamically stable. She remains on Lovenox, Decadron, vitamin supplements. Objective - Vital Signs Vital signs: Vital Signs Temp 99.1 F 01/18/21 10:00 Pulse 74 01/18/21 10:00 Resp 18 01/18/21 10:00 BP 111/79 01/18/21 10:00 Pulse Ox 94 L 01/18/21 11:02 Intake & Output 01/17/21 01/18/21 01/18/21 18:59 06:59 18:59 Intake Total 480 Balance 480 Weight 110.223 kg Intake: Oral 480 Other: # Voids 4 1 # Bowel Movements 1 - Exam GENERAL EXAM: Alert, 50-year-old female patient, on 2 L nasal cannula with O2 saturation 94%, comfortable in no apparent distress. HEAD: Normocephalic. EYES: Normal reaction of pupils, equal size. NOSE: Clear with pink turbinates. THROAT: No erythema or exudates. NECK: No masses, no JVD. CHEST: No chest wall deformity. LUNGS: Equal air entry with crackles in the bilateral bases CVS: S1 and S2 normal with no audible murmur, regular rhythm. ABDOMEN: No hepatosplenomegaly, normal bowel sounds, no guarding or rigidity. SPINE: No scoliosis or deformity SKIN: No rashes CENTRAL NERVOUS SYSTEM: No focal deficits, tone is normal in all 4 extremities. EXTREMITIES: There is no peripheral edema. No clubbing, no cyanosis. Peripheral pulses are intact. - Labs CBC & Chem 7: 01/16/21 10:13 01/16/21 10:13 Labs: Abnormal Lab Results - Last 24 Hours (Table) 01/17/21 Range/Units 05:49 Lactate Dehydrogenase 556 H (120-246) U/L C-Reactive Protein 13.3 H (0.0-0.8) mg/dL Assessment and Plan Assessment: 1 Acute hypoxemic respiratory failure secondary to acute COVID-19 pneumonia, outside the window for Remdesivir 2 Mild transaminitis secondary to above 3 Hypothyroidism secondary to thyroidectomy 4 Obesity Plan: The patient was seen and evaluated by Dr. Moreland Cleared for discharge from the pulmonary standpoint Continue with Decadron for a total of 10 days Does require home oxygen Follow-up in our office in 3-4 weeks I, the cosigning physician, performed a history & physical examination of the patient. Lungs sounds with crackles in the bilateral bases. Maintaining good O2 saturations in the 90s on 2 L/m per nasal cannula. I discussed the assessment and plan of care with my nurse practitioner, Licha Costa. I attest to the above note as dictated by her.
[2021-01-18 15:09] VITALS: BP 103/67; PULSE 83; RESP 19; TEMP 98.3
--- NOTE | 2021-01-18 18:20 | P.DS ---
Providers Date of admission: 01/16/21 11:27 Expected date of discharge: 01/18/21 Attending physician: Leonel Freed Consults: 01/16/21 11:27 Consult Physician Urgent Consulting Provider: Cedric Moreland Consult Reason/Comments: COVID Pneumonia Do you want consulting provider notified?: Yes Consult Physician Urgent Consulting Provider: Akbar Meyers Consult Reason/Comments: COVID pneumonia Do you want consulting provider notified?: Yes Primary care physician: Radha Baldwin [facility] Course: This is a 50-year-old female patient who follows with Dr. Baldwin as her primary care provider. She has a history of thyroidectomy with subsequent hypothyroidism, obesity. On 01/07/2021 she started having symptoms of shortness of breath, cough, dizziness, diarrhea. She tested positive for COVID-19 on 01/12/2021. She came to the emergency room on 831 and did receive monoclonal antibodies and discharged home. She represented here this morning with worsening shortness of breath cough and congestion. O2 saturation room air 87%. She is afebrile. Tachypneic. Blood pressure stable. Chest x-ray does reveal bilateral airspace disease consistent with COVID-19 pneumonia. White count 8.9. Hemoglobin 13.2. D-dimer 0.90. Lymphocytes 1.1. Sodium 142. Potassium 4.3. Creatinine 0.95. Glucose 136. AST 62. ALT 36. She did receive Decadron 10 mg IV 1. 0.9 normal saline at 75 ML's per hour. The patient is seen today 01/17/2001 in follow-up on the regular medical floor. She is currently resting fairly comfortably in bed. Awake and alert in no acute distress. Breathing a bit easier today compared to yesterday. She is maintaining O2 saturations in the 90s on 2 L/m per nasal cannula. She's afebrile. Hemodynamically stable. D-dimer 0.98. She remains on Lovenox, Decadron, vitamin supplements. The patient is seen today 01/18/2021 in follow-up on the regular medical floor. Awake and alert in no acute distress. Feeling nearly back to her baseline. She is maintaining O2 saturations in the 90s on 2 L nasal cannula. She does desaturate to 86% on room air. Afebrile. Hemodynamically stable. She remains on Lovenox, Decadron, vitamin supplements. Patient is discharged home in a stable condition on oral Decadron and supplemental O2 per nasal cannula Plan - Discharge Summary Discharge Rx Participant: No New Discharge Prescriptions: New dexAMETHasone ORAL [Hexadrol] 6 mg PO DAILY #7 tab Zinc Sulfate [Orazinc] 220 mg PO DAILY cap Ascorbic Acid [Vitamin C] 1,000 mg PO DAILY tab Cholecalciferol [Vitamin D3 (25 Mcg = 1000 Iu)] 25 mcg PO DAILY #0 tablet Loperamide [Imodium] 2 mg PO QID PRN cap PRN Reason: Diarrhea Continue Acetaminophen Tab [Tylenol] 500 mg PO Q6H PRN 14 Days #48 tablet PRN Reason: Pain Albuterol Inhaler [Ventolin Hfa Inhaler] 1 puff INHALATION RT-QID #8 gm Levothyroxine Sodium 300 mcg PO DAILY Multivit with Calcium,Iron,Min [Women's Multivitamin] 1 tab PO DAILY Discharge Medication List Acetaminophen Tab [Tylenol] 500 mg PO Q6H PRN 14 Days #48 tablet 01/13/21 [Rx] Albuterol Inhaler [Ventolin Hfa Inhaler] 1 puff INHALATION RT-QID #8 gm 01/13/21 [Rx] Levothyroxine Sodium 300 mcg PO DAILY 01/13/21 [History] Multivit with Calcium,Iron,Min [Women's Multivitamin] 1 tab PO DAILY 01/13/21 [History] Ascorbic Acid [Vitamin C] 1,000 mg PO DAILY tab 01/18/21 [Rx] Cholecalciferol [Vitamin D3 (25 Mcg = 1000 Iu)] 25 mcg PO DAILY #0 tablet 01/18/21 [Rx] Loperamide [Imodium] 2 mg PO QID PRN cap 01/18/21 [Rx] Zinc Sulfate [Orazinc] 220 mg PO DAILY cap 01/18/21 [Rx] dexAMETHasone ORAL [Hexadrol] 6 mg PO DAILY #7 tab 01/18/21 [Rx] Follow up Appointment(s)/Referral(s): Radha Baldwin MD [Primary Care Provider] - 1-2 days (holiday weekend) Patient Instructions/Handouts: Coronavirus Disease 2019 (COVID-19) Discharge Disposition: HOME SELF-CARE
[2021-01-19] MEDS ORDERED: dexAMETHasone 2 MG TAB PO SCH (09:00)
== END 2021-01-18 18:06 | disposition home or self-care (01) | DRG 177 ==
LOC: EC 09:47 → 4SSUR 11:27
PROVIDERS: ADMIT Hospitalist; ATTEND Hospitalist
PROC: 3E0F7SF Introduction of Other Gas into Respiratory Tract, Via Natural or Artificial Opening (ICD-10-PCS; principal; 2021-01-16)
DX: U07.1 COVID-19 (principal); J96.01 Acute respiratory failure with hypoxia; J12.82 Pneumonia due to coronavirus disease 2019; Z68.41 Body mass index [BMI] 40.0-44.9, adult; E66.01 Morbid (severe) obesity due to excess calories; R19.7 Diarrhea, unspecified; R74.01 Elevation of levels of liver transaminase levels; E89.0 Postprocedural hypothyroidism; Z98.51 Tubal ligation status; Z79.890 Hormone replacement therapy; Z79.899 Other long term (current) drug therapy; Z85.850 Personal history of malignant neoplasm of thyroid
CPT/HCPCS: 36415; 71045; 80053; 83615; 85025; 85379; 86140; 93005; 94640; 94760; 96374; 99285

== ENCOUNTER 2022-07-29 19:44 | Emergency (ER) | payer BC, OTHER ==
[2022-07-29 20:20] VITALS: TEMP 98.4
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
--- NOTE | 2022-07-29 21:12 | XR ---
EXAMINATION TYPE: XR soft tissue neck DATE OF EXAM: 07/29/2022 8:52 PM INDICATION: Patient age:Female; 51 years old; Reason for study: cough; COMPARISON: None TECHNIQUE: The soft tissues of the neck were imaged in frontal and lateral views. FINDINGS: The prevertebral soft tissues are unremarkable. There is no evidence of mass effect or trac heal deviation. No acute osseous abnormality demonstrated. No evidence of subglottic narrowing. IMPRESSION: No significant abnormality identified within the soft tissues of the neck.
--- NOTE | 2022-07-29 21:13 | XR ---
EXAMINATION TYPE: XR chest 2V DATE OF EXAM: 07/29/2022 8:52 PM COMPARISON: Chest radiographs from 01/17/2021 TECHNIQUE: XR chest 2V Frontal and lateral views of the chest. CLINICAL INDICATION:Female, 51 years old with history of cough; FINDINGS: Lungs/Pleura: There is no evidence of pleural effusion, focal consolidation, or pneumothorax. Pulmonary vascularity: Unremarkable. Heart/mediastinum: Cardiomediastinal silhouette is unremarkable. Musculoskeletal: No acute osseous pathology. IMPRESSION: No acute cardiopulmonary disease/process.
[2022-07-29 22:01] VITALS: BP 140/86; PULSE 89; RESP 16
== END 2022-07-29 22:03 | disposition home or self-care (01) ==
LOC: EC 19:44
DX: J06.9 Acute upper respiratory infection, unspecified (principal); E07.9 Disorder of thyroid, unspecified; Z79.890 Hormone replacement therapy
CPT/HCPCS: 70360; 71046; 99283